=== PATIENT | male | born 1965 | race Caucasian/White ===

== ENCOUNTER 2021-03-27 11:41 | Outpatient (CLI) | payer SELFPAY ==
[2021-03-27 13:50] VITALS: BP 134/76; PULSE 68; RESP 18; TEMP 36.1; O2SAT 97
== END 2021-03-27 11:42 | disposition home or self-care (01) ==
LOC: OPS 11:51
PROVIDERS: PCP Nurse Practitioner Family; Visit Provider Nurse Practitioner Family
DX: U07.1 COVID-19 (principal)
CPT/HCPCS: 96365

== ENCOUNTER 2021-10-02 15:22 | Outpatient (CLI) | payer OTHER, SELFPAY ==
--- NOTE | 2021-10-02 15:54 | XR_ITS ---
WS: [id number] Right shoulder, 2 views, 10/02/2021. Clinical Data: SHOULDER JOINT PAIN, RIGHT Comparison: None. Findings: No fractures or dislocations are seen. There is minimal irregularity of the inferior glenoid rim. The AC joint shows minimal narrowing. The adjacent right clavicle, right scapula and ribs are normal. Th e soft tissues are unremarkable. 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
== END 2021-10-02 15:23 | disposition home or self-care (01) ==
LOC: RAD 15:25
PROVIDERS: PCP Nurse Practitioner Family; Visit Provider Nurse Practitioner Family
DX: M19.011 Primary osteoarthritis, right shoulder (principal)
CPT/HCPCS: 73030

== ENCOUNTER → 2021-10-20 09:43 | Outpatient (BNVA) | payer OTHER, SELFPAY | PROVIDERS: PCP Nurse Practitioner Family; Visit Provider Student in an Organized Health Care Education/Training Program | DX: M25.511 Pain in right shoulder (principal) | CPT/HCPCS: 73030 ==